=== PATIENT | male | born 1965 | race African-American/Black ===

== ENCOUNTER 2025-05-01 17:53 | Observation (INO) | payer OTHER ==
[~2025-05-01] VITALS: Ht 172.7 cm; Wt 90.2 kg
[2025-05-01] MEDS ORDERED: CHLO125TA PO (18:10)
[2025-05-01] MEDS ORDERED: DILT60CASR PO (18:11)
[2025-05-01 18:46] LABS: BASO # 0.0 10^3/uL (0.0-0.2); BASO % 0.7 % (0.0-1.0); EOS # 0.1 10^3/uL (0.0-0.5); EOS % 1.9 % (0.0-3.0); LYMPH # 1.7 10^3/uL (1.5-5.0); LYMPH % 29.6 % (24.0-44.0); MONO # 0.4 10^3/uL (0.0-0.8); MONO % 6.6 % (2.0-8.0); NEUTROPHILS # 3.5 10^3/uL (1.5-8.5); NEUTROPHILS % 61.0 % (36.0-66.0); PLATELET COUNT, AUTOMATED 248 10^3/uL (150-450)
[2025-05-01 19:12] LABS: ALT/SGPT 18 U/L (7.0-40); AST/SGOT 22 U/L (<34); CALCIUM LEVEL 9.3 MG/DL (8.3-10.6); CARBON DIOXIDE LEVEL 30 MMOL/L (20-31); CHLORIDE LEVEL 101 MMOL/L (98-107); CREATININE FOR GFR 0.94 MG/DL (0.70-1.30); GLOMERULAR FILTRATION RATE > 90.0 (>49); POTASSIUM SERUM 3.7 MMOL/L (3.5-5.1); SODIUM LEVEL 140 MMOL/L (136-145)
[2025-05-01 19:14] LABS: FREE T4 0.86 NG/DL (0.89-1.76)
[2025-05-01] MEDS: hydrALAZINE 20 MG/ML 1 ML VIAL IV STA (20:05)
[2025-05-01 20:33] LABS: KETONE, URINE AUTO RFX NEGATIVE (NEGATIVE); LEUKOCYTE ESTERASE UR AUTO RFX NEGATIVE (NEGATIVE); NITRITE, URINE AUTO RFX NEGATIVE (NEGATIVE); RBC, URINE AUTO RFX 0 /HPF (0-3); SQUAM EPITHELIAL CELL UR AURFX 0 /HPF (0-6); WBC, URINE AUTO RFX 0 /HPF (0-3)
[2025-05-01] MEDS ORDERED: hydrALAZINE 20 MG/ML 1 ML VIAL IV STA (20:34)
[2025-05-01] MEDS: LABETALOL 200 MG TAB PO ONE (22:12)
[2025-05-01 22:13] VITALS: BP 181/57
[2025-05-01] MEDS: amLODIPine 10 MG TAB PO ONE (22:13)
[2025-05-01] MEDS: LR 1,000 ML IV ONE (23:42)
[2025-05-01] MEDS ORDERED: STRI1AER2 IN (23:49)
[2025-05-01] MEDS ORDERED: CART120C PO (23:49)
[2025-05-01] MEDS ORDERED: MOME13HF4 INH (23:49)
[2025-05-01] MEDS ORDERED: HOME MED LIST COMPLETE! XX SCH (23:50)
[2025-05-02 00:52] VITALS: BP 141/67; TEMP 96.8; O2SAT 99
[2025-05-02 03:26] VITALS: BP 126/69; TEMP 97.2; O2SAT 97
[2025-05-02 06:23] VITALS: BP 131/60; TEMP 97; O2SAT 98
[2025-05-02 06:52] LABS: BASO # 0.0 10^3/uL (0.0-0.2); BASO % 0.7 % (0.0-1.0); EOS # 0.1 10^3/uL (0.0-0.5); EOS % 2.0 % (0.0-3.0); LYMPH # 2.5 10^3/uL (1.5-5.0); LYMPH % 41.5 % (24.0-44.0); MONO # 0.6 10^3/uL (0.0-0.8); MONO % 9.3 % (2.0-8.0); NEUTROPHILS # 2.8 10^3/uL (1.5-8.5); NEUTROPHILS % 46.3 % (36.0-66.0); PLATELET COUNT, AUTOMATED 223 10^3/uL (150-450)
[2025-05-02 07:15] LABS: CALCIUM LEVEL 8.4 MG/DL (8.3-10.6); CARBON DIOXIDE LEVEL 29 MMOL/L (20-31); CHLORIDE LEVEL 103 MMOL/L (98-107); CREATININE FOR GFR 0.92 MG/DL (0.70-1.30); GLOMERULAR FILTRATION RATE > 90.0 (>49); POTASSIUM SERUM 3.7 MMOL/L (3.5-5.1); SODIUM LEVEL 141 MMOL/L (136-145)
[2025-05-02 07:40] VITALS: BP 147/77; TEMP 98.3; O2SAT 98
[2025-05-02] MEDS: CHLORTHALIDONE 25 MG TAB PO SCH (08:11)
[2025-05-02] MEDS: dilTIAZem 120 MG **CD** CAPSULE PO SCH (08:11)
[2025-05-02] MEDS: SYMBICORT 160/4.5MCG INHALER 6GM INH SCH (08:57)
[2025-05-02] MEDS ORDERED: AMLO1TAB25 PO (09:55)
[2025-05-02] MEDS ORDERED: amLODIPine 10 MG TAB PO SCH ×2 (16:00→21:00)
== END 2025-05-02 11:32 | disposition home or self-care (01) ==
LOC: M ED 17:53 → M ED INP 17:54 → M PCU 05-02 00:53
PROVIDERS: ADMIT Student in an Organized Health Care Education/Training Program; ATTEND Student in an Organized Health Care Education/Training Program
DX: I16.0 Hypertensive urgency (principal); I10 Essential (primary) hypertension; E78.5 Hyperlipidemia, unspecified; Z79.899 Other long term (current) drug therapy
CPT/HCPCS: 36415; 71045; 76775; 80048; 80053; 81001; 84439; 84443; 85025; 93005; 93041; 94640; 94760; 96374; 99285; G0378; J0360